=== PATIENT | male | born 1980 | race Caucasian/White ===

== ENCOUNTER 2020-12-18 23:51 | Emergency (ER) | payer OTHER ==
[2020-12-19 00:45] LABS: HEMOGLOBIN 13.7 gm/dl (14.0-17.5); RED BLOOD COUNT 4.48 M/UL (4.20-5.50); WHITE BLOOD COUNT 8.1 K/UL (4.5-11.0)
[2020-12-19 00:52] LABS: BUN/CREATININE RATIO 13 (0-10)
== END 2020-12-19 09:24 | disposition short-term general hospital (02) ==
LOC: ER1 23:51
PROVIDERS: Family Medicine
DX: R45.851 Suicidal ideations (principal); R44.0 Auditory hallucinations; F17.200 Nicotine dependence, unspecified, uncomplicated; R44.1 Visual hallucinations; Z86.59 Personal history of other mental and behavioral disorders; Z88.0 Allergy status to penicillin; Z20.822 Contact with and (suspected) exposure to COVID-19
CPT/HCPCS: 80053; 80307; 85025; 99285; U0002